=== PATIENT | female | born 1980 | race Caucasian/White ===

== ENCOUNTER 2019-03-25 12:21 | Outpatient (CLI) | payer OTHER ==
--- NOTE | 2019-03-25 13:09 | ULT ---
Focused soft tissue ultrasound of left flank: 03/25/2019 COMPARISON: None HISTORY: Nodule in left flank region TECHNIQUE: Multiplanar grayscale sonographic imaging in the area of palpable concern obtained. FINDINGS: There is a lesion within the subcutaneous fat in the area of palpable concern which is hype rechoic and measures approximately 1.5 x 1.3 x 0.9 cm. A lipoma or area of fat necrosis is favored. IMPRESSION: Nonspecific soft tissue lesion within the subcutaneous fat in the area of palpable concer n as detailed above. Lipoma favored. This could be confirmed with CT examination at this time. Alternatively, follow-up ultrasound is advised in 6 months to document stability.
== END 2019-03-25 12:22 | disposition home or self-care (01) ==
LOC: BICULT 12:21
PROVIDERS: ATTEND Internal Medicine
DX: R22.9 Localized swelling, mass and lump, unspecified (principal); M79.9 Soft tissue disorder, unspecified
CPT/HCPCS: 76999

== ENCOUNTER 2019-06-10 09:27 | Observation (INO) | payer OTHER ==
[2019-06-09 12:11] VITALS: BMI 27.6
[2019-06-09 13:09] LABS: BHCG - Serum Negative (NEGATIVE); Pregs Control Background? CLEAR/WHITE (CLR/WHITE); Pregs Control Bar Appear? YES (CONTROL BAR)
[2019-06-09 13:10] LABS: Hemoglobin 13.8 g/dL (12.0-16.0); Mean Corpuscular HGB CONC 33.2 g/dL (32.0-36.0); Mean Corpuscular Hemoglobin 31.9 pg (27.0-31.0); Mean Corpuscular Volume 96.1 fL (78.0-98.0); Mean Platelet Volume 6.9 fL (7.4-10.4); Platelet Count 343 thou/uL (130-400); RBC Distribution Width 11.6 % (11.5-14.5); Red Blood Cell (RBC) Count 4.34 mill/uL (4.20-5.40); White Blood Cell (WBC) Count 9.7 thou/uL (4.8-10.8)
--- NOTE | 2019-06-09 15:30 | HP ---
REASON FOR ADMISSION: Total laparoscopic hysterectomy with salpingectomy. REASON FOR SURGERY: Dysmenorrhea and menorrhagia. HISTORY OF PRESENT ILLNESS: Ms. Morgan is a 39-year-old, 3, para 3, status post x3, who has a long history of menorrhagia, worsening with intermenstrual bleeding. She is status post BTL and x2. She has had negative Pap smear. She desires definitive surgical management. CLEANER AND DYER HISTORY: As noted. No history of STDs. x3. PAST MEDICAL HISTORY: None. PAST SURGICAL HISTORY: C-sections. ALLERGIES: NONE. MEDICATIONS: Vitamin D. SOCIAL HISTORY: Denies tobacco, alcohol, or drug use. FAMILY HISTORY: Noncontributory. REVIEW OF SYSTEMS: Noncontributory. PHYSICAL EXAMINATION: VITAL SIGNS: White female, 5 feet 6 inches, 169, BMI 27. Blood pressure 110/70, pulse 68, respirations 18. HEENT: Within normal limits. LUNGS: Clear to auscultation bilaterally. HEART: Regular rate and rhythm. BREASTS: No masses bilaterally. ABDOMEN: Soft, nontender. No rebound or guarding. : Vulva without lesions. Vagina without discharge. Cervix, anteverted, 6-week size, mildly tender on exam. Adnexa, no masses bilaterally. EXTREMITIES: Without clubbing, cyanosis, or edema. LABORATORY DATA: Pap smear and EMB were within normal limits. IMPRESSION: Dysmenorrhea and menorrhagia, desiring definitive management with hysterectomy. PLAN: We will proceed with laparoscopic hysterectomy with Da Ayo and bilateral salpingectomy. The patient understands the risks and benefits of procedure. Job ID: [id number]
[2019-06-10] MEDS ORDERED: Gabapentin 300 MG CAP ONE (10:24)
[2019-06-10] MEDS ORDERED: Famotidine/PF 20 mg/2ml Vial ONE (10:24)
[2019-06-10] MEDS ORDERED: CeleCOXIB 100 MG CAP ONE (10:25)
[2019-06-10] MEDS ORDERED: Midazolam HCl 2 mg/2 ml Vial ONE ×2 (11:10→13:54)
[2019-06-10] MEDS ORDERED: Bupivacaine HCl 0.5%/Epinephrine 1:200,000/PF 30 ml Vial ONE (13:50)
[2019-06-10] MEDS ORDERED: Fentanyl 250 MCG/5 ML VIAL ONE (13:54)
[2019-06-10] MEDS ORDERED: Ondansetron PF 4 MG/2 ML Vial ONE (14:12)
[2019-06-10] MEDS ORDERED: Glycopyrrolate 0.2 MG/ML 5 ML SYRINGE ONE (14:12)
[2019-06-10] MEDS ORDERED: Lidocaine 1% PF 5 ML VIAL ONE (14:12)
[2019-06-10] MEDS ORDERED: Rocuronium Bromide 10 MG/ML (10ML VIAL) ONE (14:12)
[2019-06-10] MEDS ORDERED: PROPOFOL 200 MG/20 ML VIAL ONE (14:12)
[2019-06-10] MEDS ORDERED: Dexamethasone 20 MG/5 ML VIAL ONE (14:12)
[2019-06-10] MEDS ORDERED: Promethazine HCl 25 MG/ML VIAL SLOW IVP PRN (15:47)
[2019-06-10] MEDS ORDERED: Ondansetron HCl/PF 4 MG/2 ML Vial IVP PRN (15:47)
[2019-06-10] MEDS ORDERED: Promethazine HCl 25 MG/ML VIAL IM PRN ×2 (15:47→18:35)
[2019-06-10] MEDS ORDERED: Fentanyl 100 MCG/2 ML VIAL ONE ×2 (16:23→17:11)
[2019-06-10] MEDS ORDERED: Simethicone Chewable 80 MG TAB PO PRN (18:35)
[2019-06-10] MEDS ORDERED: Ondansetron PF 4 MG/2 ML Vial IVP PRN (18:35)
[2019-06-10] MEDS ORDERED: HYDROcodone/Acetaminophen 10/325 mg Tablet PO PRN ×2 (18:35)
[2019-06-10] MEDS ORDERED: Morphine 4 MG/ML VIAL SLOW IVP PRN ×2 (18:35)
[2019-06-10] MEDS ORDERED: Zolpidem Tartrate 5 MG TAB PO PRN (18:35)
[2019-06-10] MEDS: Acetaminophen 1,000 MG in Premix Bag 1 BAG IVPB SCH (19:44)
[2019-06-10] MEDS: Sodium Chloride 0.9% 1,000 ML IV SCH (20:31)
[2019-06-10] MEDS: Gabapentin 300 MG CAP PO SCH (21:13)
[2019-06-10] MEDS: CeleCOXIB 100 MG CAP PO SCH (21:13)
--- NOTE | 2019-06-10 22:34 | OP ---
DATE OF PROCEDURE: 06/10/2019 PREOPERATIVE DIAGNOSES: Menorrhagia, previous x3. POSTOPERATIVE DIAGNOSES: Menorrhagia, previous x3. PROCEDURES PERFORMED: Total laparoscopic hysterectomy, bilateral salpingectomy. SENIOR MECHANICAL DEVELOPMENT ENGINEER: Bob Durham DO, MS ANESTHESIA: General endotracheal. ESTIMATED BLOOD LOSS: 25 mL. COMPLICATIONS: None. DRAINS: Montgomery to gravity. MEDICATIONS: 2 g Ancef preincision. DVT PROPHYLAXIS: SCDs. OPERATIVE FINDINGS: 1. Approximately 8-week size uterus. 2. Normal-appearing tubes and ovaries, status post BTL. 3. Hemostasis, clear urine. COUNTS: Correct at the end of the procedure. DISPOSITION: Recovery room in good condition. DESCRIPTION OF PROCEDURE: After obtaining appropriate informed consent, the patient was taken to the operating room, where general endotracheal anesthesia was achieved without difficulty. The patient was prepped and draped in dorsal lithotomy position in Nic stirrups. Sliding speculum was placed in the vagina. Cervix was identified and grasped with single-tooth tenaculum. Uterus sounded to 9 cm and the AMANDA with an 8 cm obturator at 3.5 cm vaginal pressure testing technician was placed without difficulty. Montgomery catheter was placed. The speculum and tenaculum were removed. Accelerator Systems Director changed his clothes, turned attention to abdominal portion of the procedure. A 5 mL of Marcaine injected to the base of the umbilicus and an 11 mm skin incision was made. Veress needle placed in the abdominal cavity, insufflation was carried out with carbon dioxide at max pressure of 15, volume 3.5 to 4 L. A 12 mm non-cutting trocar was placed. Da Ayo scope placed inside confirming entry into the peritoneal cavity without trauma to the underlying viscera. The patient was placed in the steep Trendelenburg position. Right and left lateral da Ayo trocars were placed lateral to the epigastric vessels and an 11 mm painter assistant port in the right upper quadrant. Da Ayo robot was docked with the patient's deep revealed Trendelenburg position. Monopolar scissors in the right hand and bipolar fenestrated forceps in the left. The findings as noted in the operative findings were noted. The mesosalpinx was coagulated and transected on the patient's right, amputating the fallopian tube at its insertion of the uterus, and removing through the painter assistant trocar. Utero-ovarian ligament was then coagulated and transected, and this was carried through the broad, the round, and down to the level of the internal cervical os. Anteriorly, the vesicouterine peritoneum was incised sharply and dissected off the lower uterine segment, dissecting the bladder off the cervix and upper vagina. Skeletonization of the uterine vessels on the right carried out and these were coagulated and transected. Attention was then turned to the left, where the identical procedure was carried out, addressing the fallopian tube, utero-ovarian ligament, the broad ligament, the round and skeletonizing the uterine vessels. Again, vesicouterine peritoneum was incised sharply and dissected off the cervix and upper vagina. Uterine vessels were coagulated and transected. Once good dissection of the bladder off the upper vagina was assured, the vagina was entered at 12 o'clock. Incision into the vagina was extended from 12-9 and 12-3, and then from 9-6 and 6-3, amputating the specimen. It was pulled into the vagina to maintain pneumoperitoneum. Suction and irrigation were carried out. Any areas of bleeding along the cuff were rendered hemostatic. The ureters had been identified, noted to be well lateral to the operative field. The vaginal cuff was closed using a running continuous suture of 0 Stratafix in a 2 layer closure method. The bladder was filled up with normal saline by the suction and appointment specialist to ensure it's watertight state and it was not injured in dissection, and was noted to be well away from the surgical and suture field. Suction and irrigation carried out and then Tisseel applied across the raw surface. Da Ayo instruments were removed. Abdomen deflated with carbon dioxide. Trocars were removed x4. Fascia was reapproximated in the umbilicus using 0 Vicryl and UR5, and skin x4 reapproximated using 4-0 Monocryl and Dermabond. Specimen removed from the vagina. Vagina inspected and noted to be without lacerations. The patient awakened, extubated, and taken to the recovery room in good condition. Job ID: [id number]
[2019-06-11] MEDS: Acetaminophen 1,000 MG in Premix Bag 1 BAG IVPB SCH ×2 (01:58→06:24)
[2019-06-11] MEDS: Sodium Chloride 0.9% 1,000 ML IV SCH (05:30)
[2019-06-11 06:09] LABS: Hemoglobin 12.3 g/dL (12.0-16.0); Mean Corpuscular HGB CONC 31.9 g/dL (32.0-36.0); Mean Corpuscular Hemoglobin 30.8 pg (27.0-31.0); Mean Corpuscular Volume 96.7 fL (78.0-98.0); Mean Platelet Volume 6.8 fL (7.4-10.4); Platelet Count 286 thou/uL (130-400); RBC Distribution Width 11.6 % (11.5-14.5); White Blood Cell (WBC) Count 14.1 thou/uL (4.8-10.8)
[2019-06-11 08:05] VITALS: BP 104/67; TEMP 98
[2019-06-11] MEDS: CeleCOXIB 100 MG CAP PO SCH (08:46)
[2019-06-11] MEDS: Gabapentin 300 MG CAP PO SCH (08:46)
--- NOTE | 2019-06-11 10:05 | DIS ---
DATE OF ADMISSION: 06/10/2019 DATE OF DISCHARGE: 06/11/2019 ADMITTING DIAGNOSIS: Menorrhagia. MAJOR IN-HOSPITAL PROCEDURE: Total laparoscopic hysterectomy with Da Aoy and bilateral salpingectomy. SUMMARY OF HOSPITAL COURSE: The patient underwent a TLH, bilateral salpingectomy at approximately 14:30 on 06/10. The patient had an EBL of 25 mL. Postoperative hematocrit was 38.7% with normal platelet count. PHYSICAL EXAMINATION: VITAL SIGNS: Stable. Temperature this morning is 97.7, pulse 54, blood pressure 96/55, respirations 18. The patient has been voiding with ease and is tolerating p.o. LUNGS: Clear to auscultation bilaterally. HEART: Regular rate and rhythm. ABDOMEN: Soft and nontender. Incision is well healed. RECTAL: Perineum dry. EXTREMITIES: No clubbing, cyanosis, or edema. IMPRESSION: Less than 24 hours status post total laparoscopic hysterectomy, bilateral salpingectomy with good enhanced recovery. PLAN: Discharge home. The patient has prescriptions for ibuprofen and [place] on discharge, and we will follow up at [facility] [place] as scheduled. Job ID: [id number]
== END 2019-06-11 09:20 | disposition home or self-care (01) ==
LOC: SDC 09:27 → 3SE 15:29
PROVIDERS: ADMIT Obstetrics & Gynecology; ATTEND Obstetrics & Gynecology
PROC: 0UT94ZZ Resection of Uterus, Percutaneous Endoscopic Approach (ICD-10-PCS; principal; 2019-06-11)
PROC: 0UT74ZZ Resection of Bilateral Fallopian Tubes, Percutaneous Endoscopic Approach (ICD-10-PCS; 2019-06-11)
DX: N92.0 Excessive and frequent menstruation with regular cycle (principal)
CPT/HCPCS: 36415; 84703; 85027; 86850; 86900; 86901; 88307; 96361; 96374; 96375; 96376; G0378; J0131; J0670; J0690; J1100; J2001; J2250; J2270; J2405; J2704; J3010; S0028

== ENCOUNTER 2022-08-05 13:11 | Outpatient (CLI) | payer BC | END 2022-08-05 13:12 | disposition home or self-care (01) | LOC: BICMAMMO 13:11 | PROVIDERS: ATTEND Internal Medicine | DX: N63.21 Unspecified lump in the left breast, upper outer quadrant (principal); N64.89 Other specified disorders of breast | CPT/HCPCS: 77066; G0279 ==

== ENCOUNTER 2022-08-30 12:39 | Outpatient (CLI) | payer BC ==
[2022-08-30 13:56] LABS: #Eosinphils 0.1 10x3/uL (0.0-0.5); #Monocytes 0.4 10x3/uL (0.0-1.1); #Neutrophils 4.1 10x3/uL (1.5-8.4); %Basophils 0.3 % (0.0-2.0); %Eosinophils 0.9 % (0.0-6.0); %Lymphocytes 28.2 % (18.0-47.0); %Monocytes 6.3 % (0.0-10.0); Hemoglobin 13.3 g/dL (12.0-15.5); Mean Corpuscular HGB CONC 34.4 g/dL (32.0-36.0); Mean Corpuscular Hemoglobin 32.3 pg (27.0-33.0); Mean Corpuscular Volume 93.9 fl (81.6-98.3); Mean Platelet Volume 9.2 fl (7.4-10.4); Platelet Count 298 10x3/uL (150-450); RBC Distribution Width 11.7 % (11.5-14.5); Red Blood Cell (RBC) Count 4.12 10x6/uL (3.90-5.03); White Blood Cell (WBC) Count 6.4 10x3/uL (3.5-10.5)
[2022-08-30 14:23] LABS: Anion Gap 14 mmol/L (10-20); BUN (Urea Nitrogen) 18 mg/dL (7.0-18.7); Calc. Creatinine Clearance 0 mL/min (70-130); Calcium 9.8 mg/dL (7.8-10.44); Carbon Dioxide 24 mmol/L (22-29); Chloride 106 mmol/L (98-107); Estimated GFR 94; Glucose 75 mg/dL (70-105); Potassium 3.8 mmol/L (3.5-5.1); Sodium 140 mmol/L (136-145)
== END 2022-08-30 12:40 | disposition home or self-care (01) ==
LOC: LABBT 12:39
PROVIDERS: ATTEND Specialist
DX: Z01.812 Encounter for preprocedural laboratory examination (principal); Z20.822 Contact with and (suspected) exposure to COVID-19
CPT/HCPCS: 80048; 85025; 87811

== ENCOUNTER 2022-09-03 07:39 | Day surgery (SDC) | payer BC ==
[2022-09-02 13:07] VITALS: BMI 25.7
[2022-09-03] MEDS ORDERED: Acetaminophen 500 MG TAB ONE (09:38)
[2022-09-03] MEDS ORDERED: Ketorolac Tromethamine 30 MG/ML VIAL ONE (09:55)
[2022-09-03] MEDS ORDERED: Sodium Chloride 0.9% 100 ML ONE (10:27)
[2022-09-03] MEDS ORDERED: CEFAZOLIN 2 GM VIAL ONE (10:27)
[2022-09-03] MEDS ORDERED: fentaNYL Citrate/PF 100 MCG/2 ML SYRINGE ONE (11:31)
[2022-09-03] MEDS ORDERED: Bupivacaine 0.25% HCL 30 ML VIAL ONE (11:33)
[2022-09-03] MEDS ORDERED: EPINEPHrine 1 MG/ML AMP ONE (11:33)
[2022-09-03] MEDS ORDERED: Lidocaine 2% PF 5 ML VIAL ONE (11:33)
[2022-09-03] MEDS ORDERED: Isosulfan Blue 50 MG/5 ML VIAL ONE (11:33)
[2022-09-03] MEDS ORDERED: Midazolam HCl 2 mg/2 ml Vial ONE (11:51)
[2022-09-03] MEDS ORDERED: ePHEDrine 50 MG/ML VIAL ONE (12:03)
[2022-09-03] MEDS ORDERED: PHENYLEPHRINE-NS 100 MCG/ML 10 ML SYRINGE ONE (12:03)
[2022-09-03] MEDS ORDERED: Ondansetron PF 4 MG/2 ML Vial ONE (12:03)
[2022-09-03] MEDS ORDERED: Dexamethasone 20 MG/5 ML VIAL ONE (12:03)
[2022-09-03] MEDS ORDERED: PROPOFOL 200 MG/20 ML VIAL ONE (12:03)
[2022-09-03] MEDS ORDERED: HYDROcodone/Acetaminophen 5/325 mg Tablet ONE (15:34)
== END 2022-09-03 16:30 | disposition home or self-care (01) ==
LOC: NM 07:39
PROVIDERS: ATTEND Specialist
PROC: 0HBU0ZZ Excision of Left Breast, Open Approach (ICD-10-PCS; principal; 2022-09-03)
PROC: 0JB80ZZ Excision of Abdomen Subcutaneous Tissue and Fascia, Open Approach (ICD-10-PCS; principal; 2022-09-03)
PROC: 07B60ZX Excision of Left Axillary Lymphatic, Open Approach, Diagnostic (ICD-10-PCS; principal; 2022-09-03)
DX: C50.412 Malignant neoplasm of upper-outer quadrant of left female breast (principal); N60.32 Fibrosclerosis of left breast; N60.22 Fibroadenosis of left breast; M79.89 Other specified soft tissue disorders; Z17.0 Estrogen receptor positive status [ER+]; Z79.899 Other long term (current) drug therapy
CPT/HCPCS: 76098; 78195; 88304; 88307; 88342; A9541; C1713; J0171; J0690; J1100; J1885; J2001; J2250; J2405; J2704; J3490; Q9968; S0020

== ENCOUNTER 2022-10-16 11:09 | Outpatient (CLI) | payer BC ==
[2022-10-16 13:02] LABS: #Monocytes 0.4 10x3/uL (0.0-1.1); #Neutrophils 3.2 10x3/uL (1.5-8.4); %Basophils 0.5 % (0.0-2.0); %Eosinophils 0.5 % (0.0-6.0); %Lymphocytes 37.7 % (18.0-47.0); %Monocytes 6.3 % (0.0-10.0); %Neutrophils 54.8 % (40.0-75.0); Hemoglobin 13.4 g/dL (12.0-15.5); Mean Corpuscular HGB CONC 35.1 g/dL (32.0-36.0); Mean Corpuscular Hemoglobin 32.2 pg (27.0-33.0); Mean Corpuscular Volume 91.8 fl (81.6-98.3); Mean Platelet Volume 9.3 fl (7.4-10.4); Platelet Count 309 10x3/uL (150-450); RBC Distribution Width 11.9 % (11.5-14.5); Red Blood Cell (RBC) Count 4.16 10x6/uL (3.90-5.03); White Blood Cell (WBC) Count 5.9 10x3/uL (3.5-10.5)
[2022-10-16 13:34] LABS: Anion Gap 13 mmol/L (10-20); BUN (Urea Nitrogen) 14 mg/dL (7.0-18.7); Calc. Creatinine Clearance 0 mL/min (70-130); Calcium 9.7 mg/dL (7.8-10.44); Carbon Dioxide 23 mmol/L (22-29); Chloride 107 mmol/L (98-107); Estimated GFR 103; Glucose 90 mg/dL (70-105); Potassium 4.2 mmol/L (3.5-5.1); Sodium 139 mmol/L (136-145)
== END 2022-10-16 11:10 | disposition home or self-care (01) ==
LOC: LABBT 11:09
PROVIDERS: ATTEND Specialist
DX: Z01.812 Encounter for preprocedural laboratory examination (principal); C50.912 Malignant neoplasm of unspecified site of left female breast
CPT/HCPCS: 80048; 85025

== ENCOUNTER 2023-08-14 13:25 | Outpatient (CLI) | payer BC | END 2023-08-14 13:26 | disposition home or self-care (01) | LOC: BICMAMMO 13:25 | PROVIDERS: ATTEND Specialist | DX: Z08 Encounter for follow-up examination after completed treatment for malignant neoplasm (principal); Z85.3 Personal history of malignant neoplasm of breast | CPT/HCPCS: 77066; G0279 ==

== ENCOUNTER 2024-04-16 07:43 | Outpatient (CLI) | payer BC | END 2024-04-16 07:44 | disposition home or self-care (01) | LOC: BICCT 07:43 | PROVIDERS: ATTEND Internal Medicine Hematology & Oncology | DX: C50.812 Malignant neoplasm of overlapping sites of left female breast (principal) | CPT/HCPCS: 71260; 74177 ==

== ENCOUNTER 2024-05-13 14:01 | Outpatient (CLI) | payer BC | END 2024-05-13 14:02 | disposition home or self-care (01) | LOC: BICULT 14:01 | PROVIDERS: ATTEND Internal Medicine | DX: Z15.89 Genetic susceptibility to other disease (principal); E04.1 Nontoxic single thyroid nodule | CPT/HCPCS: 76536 ==

== ENCOUNTER 2024-08-19 08:57 | Outpatient (CLI) | payer BC | END 2024-08-19 08:58 | disposition home or self-care (01) | LOC: BICMAMMO 08:57 | PROVIDERS: ATTEND Specialist | DX: Z08 Encounter for follow-up examination after completed treatment for malignant neoplasm (principal); Z85.3 Personal history of malignant neoplasm of breast | CPT/HCPCS: 77066; G0279 ==